=== PATIENT | female | born 1970 | race African-American/Black ===

== ENCOUNTER 2017-11-27 08:37 | Emergency (ER) | payer SELFPAY ==
[~2017-11-27] VITALS: Ht 165.1 cm; Wt 104.3 kg
[2017-11-27 08:51] VITALS: BP 148/80
[2017-11-27] MEDS ORDERED: Dexamethasone 4mg/ml vial IM ONE (09:15)
--- NOTE | 2017-11-27 09:33 | Emergency Room Report ---
History of Present Illness General Chief Complaint: Sore Throat Source: Patient Present Illness HPI Patient just with complaints of sore throat She reports that she was recently on antibiotics amoxicillin 500 mg twice a day Allergies sore throat persistent She still sees white plaque in the back of her throat She feels generally fatigued Has mild headache Denies any chest pain or shortness of breath denies any vomiting patient is able to swallow however she does have significant pain Denies any change in her voice and has any rash Allergies: Coded Allergies: HYDROMORPHONE (Verified Allergy, Severe, 11/27/17) N/V IODINE (Verified Allergy, Severe, Anaphylaxis, 11/27/17) PENICILLINS (Verified Allergy, Severe, Anaphylaxis, 11/27/17) Patient History Past Medical History: see triage record Pertinent Family History: none Last Menstrual Period: hyst Now: No Reviewed Nursing Documentation: PMH: Agreed, PSxH: Agreed Nursing Documentation-PMH Past Medical History: No History, Except For Hx Hypertension: Yes History Of Psychiatric Problem: Yes - depression Review of Systems All Other Systems: negative except mentioned in HPI Physical Exam Vital Signs Date Time Temp Pulse Resp B/P (MAP) Pulse Ox O2 Delivery O2 Flow Rate FiO2 11/27/17 08:41 97.9 74 18 152/85 98 Room Air Sp02 EP Interpretation: reviewed, normal General Appearance: well appearing, no apparent distress Head: normocephalic, atraumatic Eyes: bilateral eye PERRL, bilateral eye EOMI ENT: no angioedema, normal voice, tonsillar exudate - Bilaterally, uvula otherwise midline, no obvious peritonsillar abscess Neck: full range of motion, supple, thyroid normal Respiratory: lungs clear, normal breath sounds Cardiovascular #1: regular rate, rhythm, no edema Gastrointestinal: non tender, soft Genitourinary: no CVA tenderness Musculoskeletal: normal inspection, back normal Neurologic: alert, oriented x3, responsive Skin: normal color, no rash Lymphatic: no adenopathy Medical Decision Making Diagnostic Impression: Primary Impression: Pharyngitis Additional Impression: Pharyngitis, acute ER Course Patient's oral exam is significant with bilateral exudates and erythema There is however no change in her voice uvula is midline my suspicion for retropharyngeal abscess as low as well Patient was provided with steroid injection here will require different antibiotic coverage And close outpatient followup Last Vital Signs Date Time Temp Pulse Resp B/P (MAP) Pulse Ox O2 Delivery O2 Flow Rate FiO2 11/27/17 08:51 97.9 85 18 148/80 98 Room Air Status: improved Disposition: HOME, SELF-CARE Condition: Improved Referrals: NOT CHOSEN IPA/MD,REFERRING (PCP) Additional Instructions: Patient is provided with the discharge instructions notified to follow up with primary doctor in the next 2-3 days otherwise return to the er with any worsening symptoms. Please note that this report is being documented using [employer] technology. This can lead to erroneous entry secondary to incorrect interpretation by the dictating instrument. CASEY BURGER D.O. Nov 27, 2017 09:33
[2017-11-27] MEDS ORDERED: PREDNISONE20 MG ORAL (09:35)
[2017-11-27] MEDS ORDERED: AUGMENTIN 875-1 EAC1 ORAL (09:35)
[2017-11-27] MEDS ORDERED: ACETAMINOPHEN-1 EAC1 ORAL (09:35)
[2017-11-27 09:42] VITALS: BP 148/80
== END 2017-11-27 09:44 | disposition home or self-care (01) ==
LOC: EMR 09:10
DX: J02.9 Acute pharyngitis, unspecified (principal); I10 Essential (primary) hypertension; F32.9 Major depressive disorder, single episode, unspecified; Z88.0 Allergy status to penicillin; Z88.8 Allergy status to other drugs, medicaments and biological substances
CPT/HCPCS: 96372; 99283; J1100

== ENCOUNTER 2018-12-28 11:34 | Emergency (ER) | payer MEDICAID ==
[~2018-12-28] VITALS: Ht 166.4 cm; Wt 112.5 kg
[~2018-12-28 11:34] MED LIST: ACETAMINOPHEN-1 EAC1 ORAL; AUGMENTIN 875-1 EAC1 ORAL; PREDNISONE20 MG ORAL
[2018-12-28] MEDS ORDERED: LEXAPRO20 MG ORAL (11:56)
[2018-12-28] MEDS ORDERED: NORVASC10 MG ORAL (11:56)
[2018-12-28 12:21] VITALS: BP 140/88
--- NOTE | 2018-12-28 12:23 | NUR ---
ED Nurse Note:pt. came with open cyst on right buttock
[2018-12-28] MEDS ORDERED: Tylenol #3 tab (300mg/30mg) ORAL ONE (12:30)
[2018-12-28] MEDS ORDERED: Lidocaine 1% MPF 10mg/ml 5ml IM ONE (12:30)
[2018-12-28] MEDS ORDERED: Tylenol #3 tab (300mg/30mg) ONE (12:31)
--- NOTE | 2018-12-28 13:05 | Emergency Room Report ---
History of Present Illness General Chief Complaint: Skin Rash/Abscess Source: Patient Present Illness HPI 48-year-old female presents to the emergency department complaining of localized 8 out of 10 in severity pain swelling erythema and tenderness to the right buttock 2 days patient states her symptoms are progressive she denies fevers or chills trauma or fall. Patient denies history of immunocompromise she reports that she has had a history of staph infections in the past. Patient states that pain is exacerbated upon sitting she states that she has noticed some drainage and states that she is up-to-date with tetanus vaccinations. She denies any other aggravating or relieving factors. Allergies: Coded Allergies: HYDROMORPHONE (Verified Allergy, Severe, 11/27/17) N/V IODINE (Verified Allergy, Severe, Anaphylaxis, 11/27/17) PENICILLINS (Verified Allergy, Severe, Anaphylaxis, 11/27/17) Patient History Past Medical History: see triage record Past Surgical History: none Pertinent Family History: none Now: No Reviewed Nursing Documentation: PMH: Agreed; PSxH: Agreed Nursing Documentation-PMH Hx Hypertension: Yes Review of Systems All Other Systems: negative except mentioned in HPI Physical Exam Vital Signs Date Time Temp Pulse Resp B/P (MAP) Pulse Ox O2 Delivery O2 Flow Rate FiO2 12/28/18 11:46 98.2 65 12 140/88 98 Room Air Sp02 EP Interpretation: reviewed, normal General Appearance: no apparent distress, alert, GCS 15, non-toxic Head: normocephalic, atraumatic Eyes: bilateral eye normal inspection, bilateral eye PERRL ENT: hearing grossly normal, normal voice Neck: full range of motion Respiratory: lungs clear, normal breath sounds, speaking full sentences Cardiovascular #1: regular rate, rhythm Rectal: other - 1 cm abscess to the right buttock Musculoskeletal: back normal, gait/station normal, normal range of motion, non- tender Neurologic: alert, oriented x3, responsive, motor strength/tone normal, sensory intact, speech normal, grossly normal Psychiatric: judgement/insight normal Skin: normal color, no rash, warm/dry, well hydrated, other - 1 cm abscess to the right buttock Procedures Incision and Drainage Incision and Drainage : Consent: Verbal Site: right buttock Blade Size: 11 I & D Procedure: sterile drapes applied, sterile dressing applied Wound Location: other - right buttock Wound Length (cm): 1 Wound Explored: contaminated - purulent d/c Anesthesia: 1% Lidocaine Volume Anesthetic (ccs): 30 Splint Applied?: No Sling Applied?: No Patient Tolerated: Well Complications: None Medical Decision Making PA Attestation Dr. Rider is my supervising Physician whom patient management has been discussed with. Diagnostic Impression: Primary Impression: Abscess ER Course 48-year-old female presents to the emergency department complaining of localized 8 out of 10 in severity pain swelling erythema and tenderness to the right buttock 2 days patient states her symptoms are progressive she denies fevers or chills trauma or fall. Patient denies history of immunocompromise she reports that she has had a history of staph infections in the past. Patient states that pain is exacerbated upon sitting she states that she has noticed some drainage and states that she is up-to-date with tetanus vaccinations. She denies any other aggravating or relieving factors. Ddx considered but are not limited to cellulitis, abscess, cystic acne, necrotizing fasciitis, insect bite. Vital signs: are WNL, pt. is afebrile H&PE are most consistent with 1 cm abscess to the right buttock ORDERS: none required at this time, the diagnosis is clinical ED INTERVENTIONS: -I & D. -I do not identify an emergent condition at this time. With current presentation , pt. is stable for close outpatient follow up and conservative treatment. D/ w pt. to return promptly to ED with worsening or new symptoms.- Pt. verbalizes' understanding and agreement with proposed treatment plan. DISCHARGE: At this time pt. is stable for d/c to home. Will provide printed patient care instructions, and any necessary prescriptions. Care plan and follow up instructions have been discussed with the patient prior to discharge. Last Vital Signs Date Time Temp Pulse Resp B/P (MAP) Pulse Ox O2 Delivery O2 Flow Rate FiO2 12/28/18 12:21 98.2 12 140/88 98 Room Air 12/28/18 11:46 65 Disposition: HOME, SELF-CARE Condition: Stable Scripts Cephalexin* (KEFLEX*) 500 Mg Capsule 500 MG ORAL EVERY 12 HOURS for 7 Days, #14 CAP 0 Refills Prov: Crystal Soni 12/28/18 Trimethoprim/Sulfamethoxazole 160/800* (BACTRIM DS TABLET*) 1 Each Tablet 1 TAB ORAL TWICE A DAY, #14 TAB Prov: Crystal Soni 12/28/18 Mupirocin* (MUPIROCIN*) 22 Gm Oint...g. 1 APPLIC TOPIC THREE TIMES A DAY, #22 GM 2 Refills Prov: Crystal Soni 12/28/18 Referrals: NOT CHOSEN IPA/MD,REFERRING (PCP) Patient Instructions: Abscess Additional Instructions: Take medications as directed. Follow up with a Primary Care Provider in 3-5 days, even if your symptoms have resolved. --Please review list of primary care clinics, if you do not already have a primary care provider Return sooner to ED if new symptoms occur, or current symptoms become worse. - Please note that this Emergency Department Report was dictated using [email or web address] technology software, occasionally this can lead to erroneous entry secondary to interpretation by the dictation equipment. Crystal Soni Dec 28, 2018 13:05
[2018-12-28] MEDS ORDERED: BACTRIM DS TAB1 EAC1 ORAL (13:07)
[2018-12-28] MEDS ORDERED: CEPHALEXIN500 MG ORAL (13:07)
[2018-12-28] MEDS ORDERED: MUPIROCIN22 GM TOPIC (13:07)
[2018-12-28 13:23] VITALS: BP 140/88
--- NOTE | 2018-12-28 13:25 | NUR ---
ER DISCHARGE NOTE:I&D was done by ER PA then dry dressing placed on right buttock Patient is cleared to be discharged per ERMD, pt is aox4, on room air, with stable vital signs. pt was given dc and prescription instructions, pt was able to verbalize understanding, pt is able to ambulate with steady gait. pt took all belongings.
== END 2018-12-28 13:26 | disposition home or self-care (01) ==
LOC: EMR 12:15
DX: L02.31 Cutaneous abscess of buttock (principal); I10 Essential (primary) hypertension; Z88.0 Allergy status to penicillin; Z88.6 Allergy status to analgesic agent; Z91.041 Radiographic dye allergy status
CPT/HCPCS: 10060; 99283; Z7502

== ENCOUNTER 2019-09-17 17:18 | Emergency (ER) | payer MEDICAID, OTHER ==
[~2019-09-17] VITALS: Ht 165.1 cm; Wt 117.9 kg
[~2019-09-17 17:18] MED LIST changes: +BACTRIM DS TAB1 EAC1 ORAL; +CEPHALEXIN500 MG ORAL; +LEXAPRO20 MG ORAL; +MUPIROCIN22 GM TOPIC; +NORVASC10 MG ORAL
[2019-09-17 17:26] VITALS: BP 124/80
--- NOTE | 2019-09-17 17:48 | NUR ---
ED Nurse Note: PT. AAOX4.AMBULATORY. PT. WALKED IN TO ER FROM HOME. PER PT. , SHE HAS A SORE THROAT SINCE LAST NIGHT
[2019-09-17] MEDS ORDERED: IBUPROFEN600 MG ORAL (17:52)
[2019-09-17] MEDS ORDERED: ZITHROMAX250 MG ORAL (17:52)
--- NOTE | 2019-09-17 17:52 | Emergency Room Report ---
History of Present Illness General Chief Complaint: Sore Throat Source: Patient Present Illness HPI 48-year-old female with no significant past medical history other than hypertension currently controlled here complaining of 2 days of a 10 out of 10 sore throat and fever. Has not taken medication for symptom relief. Denies chest pain, shortness of breath, palpitation, abdominal pain, nausea vomiting, cough and congestion. Reports that she was exposed to strep throat. Patient also has her son here with her with similar symptoms. Allergies: Coded Allergies: HYDROMORPHONE (Verified Allergy, Severe, 11/27/17) N/V IODINE (Verified Allergy, Severe, Anaphylaxis, 11/27/17) PENICILLINS (Verified Allergy, Severe, Anaphylaxis, 11/27/17) Patient History Past Medical History: see triage record Past Surgical History: unable to obtain Pertinent Family History: none Now: No Immunizations: UTD Reviewed Nursing Documentation: PMH: Agreed; PSxH: Agreed Nursing Documentation-PMH Hx Hypertension: Yes Review of Systems All Other Systems: negative except mentioned in HPI Physical Exam Vital Signs Date Time Temp Pulse Resp B/P (MAP) Pulse Ox O2 Delivery O2 Flow Rate FiO2 09/17/19 17:26 98.2 72 19 124/80 98 Room Air Sp02 EP Interpretation: reviewed, normal General Appearance: no apparent distress, alert, GCS 15, non-toxic Head: normocephalic, atraumatic Eyes: bilateral eye normal inspection, bilateral eye PERRL ENT: EOM grossly intact, no angioedema, normal voice, TMs + canals normal, uvula midline, tonsillar swelling, tonsillar exudate Neck: full range of motion, supple, supple/symm/no masses Respiratory: normal inspection, chest non-tender, lungs clear, normal breath sounds, no rhonchi, no respiratory distress, no retraction, no wheezing Cardiovascular #1: regular rate, rhythm, no edema, no murmur Gastrointestinal: normal bowel sounds, non tender, soft, non-distended, no guarding, no rebound Genitourinary: no CVA tenderness Musculoskeletal: back normal, normal range of motion, gait/station normal, non- tender Neurologic: alert, motor strength/tone normal, oriented x3, sensory intact, responsive, speech normal Psychiatric: normal inspection, judgement/insight normal, memory normal Skin: no rash Lymphatic: adenopathy - ant cervical Medical Decision Making PA Attestation Diagnosis and treatment plans were reviewed and discussed with my supervising physician Dr. Scott Diagnostic Impression: Primary Impression: Strep pharyngitis ER Course 48-year-old female with no significant past medical history other than hypertension currently controlled here complaining of 2 days of a 10 out of 10 sore throat and fever. Has not taken medication for symptom relief. Denies chest pain, shortness of breath, palpitation, abdominal pain, nausea vomiting, cough and congestion. Reports that she was exposed to strep throat. Patient also has her son here with her with similar symptoms. Ddx considered but are not limited to: strep pharyngitis, URI, tonsillitis, peritonsillar abscess, influneza Vital signs: are WNL, pt. is afebrile H&PE are most consistent with: Strep pharyngitis ORDERS: Azithromycin, ibuprofen ED INTERVENTIONS: First dose of azithromycin ibuprofen given DISCHARGE: At this time pt. is stable for d/c to home. Will provide printed patient care instructions, and any necessary prescriptions. Care plan and follow up instructions have been discussed with the patient prior to discharge. Take medication as directed, follow-up with your primary care provider, if worsening symptoms return to the emergency room Last Vital Signs Date Time Temp Pulse Resp B/P (MAP) Pulse Ox O2 Delivery O2 Flow Rate FiO2 09/17/19 17:26 98.2 72 19 124/80 (95) 98 Room Air Disposition: HOME, SELF-CARE Condition: Stable Scripts Azithromycin* (ZITHROMAX*) 250 Mg Tablet 250 MG ORAL DAILY, #6 TAB 0 Refills Take two tables once daily for 1 day, then one tablet once daily for 4 days. Prov: Justus Oliveros 09/17/19 Ibuprofen* (MOTRIN*) 600 Mg Tablet 600 MG ORAL Q6H PRN for For Pain, #30 TAB Prov: Justus Oliveros 09/17/19 Patient Instructions: Strep Throat Additional Instructions: take medication as directed, follow-up with your primary care provider, if worsening symptoms return to the emergency room Justus Oliveros Sep 17, 2019 17:52
[2019-09-17] MEDS ORDERED: Azithromycin 250mg tab ORAL ONE (18:00)
[2019-09-17 18:21] VITALS: BP 124/80
--- NOTE | 2019-09-17 18:21 | NUR ---
ER DISCHARGE NOTE: Patient is cleared to be discharged per ERMD, pt is aox4, on room air, with stable vital signs. pt was given dc and prescription instructions, pt was able to verbalize understanding, pt id band removed pt is able to ambulate with steady gait. pt took all belongings.
== END 2019-09-17 18:21 | disposition home or self-care (01) ==
LOC: EMR 17:45
DX: J02.0 Streptococcal pharyngitis (principal); I10 Essential (primary) hypertension; Z88.5 Allergy status to narcotic agent; Z88.0 Allergy status to penicillin; Z88.8 Allergy status to other drugs, medicaments and biological substances
CPT/HCPCS: Q0144; Z7502; 99282